=== PATIENT | male | born 1950 | race African-American/Black ===

== ENCOUNTER 2023-07-28 12:58 | Inpatient (IN) | payer MEDICARE, MEDICAID, SELFPAY ==
[2023-07-28] VITALS (8 sets, daily range): BP systolic 108–165; BP diastolic 52–75; PULSE 76–100; RESP 16–20; TEMP 36.4–37; O2SAT 97–100; BMI 30.4
--- NOTE | ~2023-07-28 | XR_ITS ---
EXAMINATION: XR chest 2V DATE: 07/28/2023 13:36 INDICATION: Cough. Hemoptysis. Sore throat. TECHNIQUE: Frontal and lateral views of the chest were obtained. COMPARISON: None. FINDINGS: There is mild atelectasis in the lower lung zones. No pleural effusion or pneumothorax. The heart size is normal. There are old healed right rib fractures. There is mild chronic anterior wedgi ng of multiple vertebral bodies. IMPRESSION: 1. Mild atelectasis in the lower lung zones. Reviewed, dictated and finalized at location E.
--- NOTE | ~2023-07-28 | CT_ITS ---
EXAMINATION: CTA chest PE protocol DATE: 07/28/2023 15:45 CDT INDICATION: Pulmonary embolism. TECHNIQUE: Computed tomographic angiography (CTA) of the chest was performed with 100 mL Omnipaque-35 0 intravenous contrast. The dose-length product was 989.66 mGy-cm. Maximum intensity projection 3D-re constructions of the aorta and other arteries were constructed by the technologist on a separate work station. COMPARISON: None. FINDINGS: There is lingular and left lower lobe atelectasis. No thoracic lymphadenopathy. No evidence for aortic aneurysm or dissection. Small hiatal hernia with thickening of the esophagus. Gallbladder is contracted. Study limited due to contrast bolus timing and motion artifact. No large central pulm onary embolism. Elevated left diaphragm. There are multiple small bilateral pulmonary nodules measuri ng 3 mm or less, likely benign. There is left lower lobe atelectasis. No pneumothorax. No endobronchi al lesions. Moderate thoracic spondylosis. Multiple mild wedge compression deformities of the thoraci c spine which appear chronic. IMPRESSION: 1. No large central pulmonary embolism. Evaluation of the peripheral pulmonary arteries limited. 2: Elevated left diaphragm with lingular and left lower lobe atelectasis. 3: Small hiatal hernia with thickening of the distal esophagus, suspicious for esophagitis. 4: Small bilateral pulmonary nodules measuring 3 mm or less, likely benign. Consider follow-up low d ose CT in 12 months. Reviewed, dictated and finalized at location A. IMPRESSION: 1. No large central pulmonary embolism. Evaluation of the peripheral pulmonary arteries limited. 2: Elevated left diaphragm with lingular and left lower lobe atelectasis. 3: Small hiatal hernia with thickening of the distal esophagus, suspicious for esophagitis. 4: Small bilateral pulmonary nodules measuring 3 mm or less, likely benign. Co nsider follow-up low dose CT in 12 months.
[2023-07-28 14:23] LABS: Influenza A QL RT-PCR Negative (Negative); Influenza B QL RT-PCR Negative (Negative); RSV RNA, RT-PCR Negative (Negative); SARS-CoV-2 RNA PCR Negative (Negative)
--- NOTE | 2023-07-28 14:34 | ED.URI ---
HPI - URI/Sore Throat General Chief Complaint: Upper Respiratory Infection Stated Complaint: coughing up blood clots Time Seen by Provider: 07/28/23 13:34 History of Present Illness HPI Narrative: Patient is a pleasant 73-year-old male here today with hemoptysis. He states that over the last 1 week he believes he has coughed up blood 4-5 times. He has a difficult time describing the blood however he does believe there is some sputum with blood in it and not blood clot. He notes some associated dental pain as well as a sore throat. He denies any recent nose bleeds. He does believe he has had a mild cough, as well as some shortness of breath. He denies any chest pain. He is unsure if he is on any blood thinners. Her [facility] paperwork is a history of schizophrenia, generalized anxiety, mood disorder, chronic pain, hypertension, neuro cognitive disorder. No blood thinners on medication list. Related Data Home Medications Medication Instructions Recorded Confirmed amlodipine 10 mg tablet 10 mg PO DAILY 07/28/23 07/28/23 escitalopram oxalate 20 mg tablet 20 mg PO DAILY 07/28/23 07/28/23 gabapentin 300 mg capsule 300 mg PO TID 07/28/23 07/28/23 lisinopril 40 mg tablet 40 mg PO DAILY 07/28/23 07/28/23 naproxen 500 mg tablet 500 mg PO Q6H 07/28/23 07/28/23 quetiapine 25 mg tablet 25 mg PO BID 07/28/23 07/28/23 Allergies Allergy/AdvReac Type Severity Reaction Status Date / Time ketorolac Allergy Unknown Verified 07/28/23 15:08 Review of Systems Review of Systems: All systems reviewed & are unremarkable except as noted in HPI and below [facility] Past Medical History Medical History (Updated 07/28/23 @ 18:06 by Jana Ziegler PA-C) Chronic pain syndrome Generalized anxiety disorder Hypertension Schizophrenia Surgical History Surgical History (Updated 07/28/23 @ 18:04 by Jana Ziegler PA-C) No history of previous surgery Family History Family History (Updated 07/28/23 @ 18:05 by Jana Ziegler PA-C) Other Family history unknown Social History Social History (Updated 07/28/23 @ 18:05 by Jana Ziegler PA-C) Social History: Surrogate medical decision maker: Kriss Wise, daughter. Code status: Full code. Smoking status: Never smoker Alcohol intake: never Substance use: never Substance use type: does not use Do You Feel Safe in your Home?: Yes Lack of Transportation: No Lack of Food: Never True Current Housing: I Have Housing Concerned About Future Housing: No Difficulty Paying Gas/Electric Bills: No Difficulty Paying for Meds: No Currently Unemployed: No Education: Decline to Answer Difficulty w/ Childcare or Family Care: No Spiritual care concerns: No Exam Narrative: GENERAL: Well-appearing, well-nourished, and in no acute distress. HEAD: Normocephalic, atraumatic. EYES: PERRLA and EOMI. ENT: Nares clear. Mucous membranes moist. Difficult to visualize posterior pharynx, no obvious active bleeding or swelling or erythema. Poor dentition throughout but no appreciated dental fractures. No blood in nares. NECK: Supple. CHEST: Mild coarse breath sounds on the right side. No respiratory distress. HEART: Regular rate and rhythm. Normal peripheral pulses. ABDOMEN: Soft, nontender, nondistended. EXTREMITIES: Normal range of motion. No edema. No calf tenderness. SKIN: Warm, dry, no rash. NEURO: No focal deficits. Alert and oriented x2. PSYCH: Normal mood and affect. Course Course Emergency Course: Chart review performed. Patient from [facility] for coughing up blood intermittently x1 week, 2 episodes. Triage vitals normal. No prior visits in our system. COVID, influenza, RSV negative. CXR shows mild atelectasis in lower lung zones. Patient seen evaluated, nontoxic appearing. He is able to provide a decent history, describes some hemoptysis over the last week. He is not on any blood thinners. It seems as though it h
--- NOTE | 2023-07-28 14:35 | ECG_ITS ---
SEE SCANNED COPY FOR CONFIRMED REPORT MTDD
[2023-07-28] MEDS: ACETAMINOPHEN 500 MG TABLET PO (15:12)
[2023-07-28 15:15] LABS: Basophils Absolute Auto 0.1 K/mm3 (0.0-0.1); Basophils Percent Auto 0.6 % (0.2-1.2); Eosinophils Absolute Auto 0.3 K/mm3 (0-0.3); Eosinophils Percent Auto 3.4 % (0-4.4); Hematocrit 26.2 % (42.0-52.0); Hemoglobin 7.2 g/dL (14.0-18.0); Immature Granulocyte Absolute 0.02 K/mm3 (0.00-0.031); Immature Granulocyte Percent A 0.2 % (0-0.5); Lymphocytes Percent Auto 34.5 % (18.3-44.2); Mean Corpuscular HGB Conc 27.5 g/dl (32-36); Mean Corpuscular Volume 94.6 fl (80-100); Mean Platelet Volume 9.8 fl (7.4-10.4); Monocytes Absolute Auto 0.8 K/mm3 (0.1-0.6); Monocytes Percent Auto 8.3 % (2.6-8.5); Neutrophils Absolute Auto 5.2 K/mm3 (1.3-6.7); Nucleated Red Blood Cells Perc 0.5 % (0.0-0.2); Platelet Count Result 442 k/mm3 (150-375); Red Blood Count 2.77 M/mm3 (4.6-6.20); Red Cell Distribution Width 19.3 % (11.5-14.5); White Blood Count 9.9 K/mm3 (4.5-10.0)
[2023-07-28 15:25] LABS: Alanine Aminotransferase 16 U/L (6-50); Albumin Level 3.6 g/dL (3.5-5.1); Alkaline Phosphatase 120 U/L (38-126); Anion Gap 3 mmol/L (4-12); Aspartate Amino Transferase 19 U/L (17-59); Bilirubin,Total 0.3 mg/dL (0.2-1.3); Blood Urea Nitrogen 19 mg/dL (9-20); Carbon Dioxide 27 mmol/L (22-30); Chloride 111 mmol/L (98-107); Estimated CRCL calculation 71 ml/min; Estimated Glomerular Filt Rate > 60; Glucose 132 mg/dL (65-110); Sodium 141 mmol/L (137-145)
[2023-07-28 15:30] LABS: Prothrombin Time 14.1 Seconds (11.1-14.7)
[2023-07-28 15:31] LABS: Partial Thromboplastin Time 29.1 Seconds (22.3-36.8)
[2023-07-28 15:37] LABS: NT Pro B Type Natriuretic Pept < 20 pg/mL (19.9-100); Troponin I < 0.012 ng/mL (0.000-0.034)
[2023-07-28 15:57] LABS: Anisocytosis 1+; Platelet Estimate Increased (Adequate); Schistocytes None Seen
[2023-07-28] MEDS: PANTOPRAZOLE SODIUM IV 40 MG VIAL IV PUSH (17:42)
--- NOTE | 2023-07-28 18:02 | PM.IMHP ---
H&P: HPI History of Present Illness Date/Time: 07/28/23 17:30 Chief Complaint: ?Coughing up blood.? Narrative: This is a pleasant 73-year-old male with history of hypertension, anxiety, neuro cognitive disorder, chronic pain, and schizophrenia who presented to the emergency department via EMS from [facility] for evaluation of ?coughing up blood.? The patient is not the greatest historian unfortunately he has never been seen at this facility before. He tells me that he has coughed up blood 4 to 5 times in the past 1 week. With further questioning he reports coughing up some mucus with a small amount of bright red blood in it. He does mention dental pain but does not think he has been bleeding from the mouth and he denies nose bleed as well. He does not believe that the blood is coming from the stomach. Otherwise he is feeling okay and he denies fever, chills, sweats, sinus congestion, sore throat, chest pain, pleuritic pain, shortness of breath, epigastric pain, abdominal pain, bloating, indigestion, diarrhea, melena, hematochezia, and dysuria. In the ED: He was afebrile on arrival with stable vital signs. Labs were significant for WBC count of 9.9, hemoglobin 7.2, MCV 94.6, platelet 442, INR 1.0, BUN 19, creatinine 1.00. He tested negative for influenza, RSV, and COVID. Chest CTA showed no evidence of large central pulmonary embolism, left diaphragm elevation, small hiatal hernia with thickening of the distal esophagus, and small bilateral pulmonary nodules. Stool was Hemoccult negative per ED physician. He is being admitted in this setting for further workup. Review of Systems Review of Systems: 12 systems were reviewed and are negative except for as per HPI. [facility] Past Medical History Medical History (Updated 07/28/23 @ 21:31 by Jana Ziegler PA-C) Chronic pain syndrome Generalized anxiety disorder Hypertension Schizophrenia Surgical History Surgical History (Updated 07/28/23 @ 18:04 by Jana Ziegler PA-C) No history of previous surgery Family History Family History (Updated 07/28/23 @ 18:05 by Jana Ziegler PA-C) Other Family history unknown Social History Social History (Updated 07/28/23 @ 18:05 by Jana Ziegler PA-C) Social History: Surrogate medical decision maker: Kriss Wise, daughter. Code status: Full code. Smoking status: Never smoker Alcohol intake: never Substance use: never Substance use type: does not use Do You Feel Safe in your Home?: Yes Lack of Transportation: No Lack of Food: Never True Current Housing: I Have Housing Concerned About Future Housing: No Difficulty Paying Gas/Electric Bills: No Difficulty Paying for Meds: No Currently Unemployed: No Education: Decline to Answer Difficulty w/ Childcare or Family Care: No Spiritual care concerns: No Meds Home Medications and Allergies Home Medications Medication Instructions Recorded Confirmed Type amlodipine 10 mg tablet 10 mg PO DAILY 07/28/23 07/28/23 History escitalopram oxalate 20 mg tablet 20 mg PO DAILY 07/28/23 07/28/23 History gabapentin 300 mg capsule 300 mg PO TID 07/28/23 07/28/23 History lisinopril 40 mg tablet 40 mg PO DAILY 07/28/23 07/28/23 History naproxen 500 mg tablet 500 mg PO Q6H 07/28/23 07/28/23 History quetiapine 25 mg tablet 25 mg PO BID 07/28/23 07/28/23 History Allergies Allergy/AdvReac Type Severity Reaction Status Date / Time ketorolac Allergy Unknown Verified 07/28/23 15:08 Vital Signs Vital Signs - 24 hr 07/28/23 12:56 07/28/23 13:30 07/28/23 15:30 Temperature 97.6 F Pulse Rate 90 92 85 Respiratory Rate 16 16 16 Blood Pressure 129/67 134/75 108/55 L Pulse Oximetry 99 98 98 07/28/23 18:01 Temperature Pulse Rate 76 Respiratory Rate 16 Blood Pressure 118/66 Pulse Oximetry 97 Exam Narrative: General: Well-developed male supine in bed in no distress. Weight: 102 kg. BMI: 30.5. HEENT: Normo
--- NOTE | 2023-07-28 18:46 | PC.NURSE ---
This patient, Pancho Puga, was admitted to [facility] Surg Room 327-01. Patient/family oriented to hospital policies and general routines including ID bracelet, bed and alarms, visiting hours, pain management, procedures, bathroom and other care routines, personal items, smoking policy, room service/diet, and visiting hours. Information on how to activate the Rapid Response Team has been discussed. Patient/Family are encouraged to report perceived risks to care and to ask questions if they do not understand what they are told or what they should do.
[2023-07-28] MEDS: ACETAMINOPHEN 325 MG TABLET 650 MG PO (21:19)
[2023-07-28 21:50] LABS: Hematocrit 26.7 % (42.0-52.0); Hemoglobin 7.6 g/dL (14.0-18.0)
[2023-07-28 22:06] LABS: Iron 20 ug/dL (49-181)
[2023-07-28 22:16] LABS: Percent Iron Saturation 6 % (20-50)
[2023-07-28] MEDS: QUEtiapine FUMARATE 25 MG TABLET PO (22:19)
[2023-07-28 22:42] LABS: Ferritin 7.16 ng/mL (11.1-264)
[2023-07-28 23:07] LABS: Folic Acid 8.2 ng/mL (2.76->20); Vitamin B12 > 1000.0 pg/mL (239-931)
[2023-07-29] VITALS (8 sets, daily range): BP systolic 118–157; BP diastolic 67–90; PULSE 76–93; RESP 12–18; TEMP 35.4–36.9; O2SAT 93–100
[2023-07-29] MEDS: MAGNES & ALUM HYD/SIMETH/DIPHENHYD/LIDOCAINE 119 ML MOUTHWASH BY MOUTH ×6 (00:45→20:36)
[2023-07-29 06:03] LABS: Hematocrit 27.7 % (42.0-52.0); Hemoglobin 7.7 g/dL (14.0-18.0); Mean Corpuscular HGB Conc 27.8 g/dl (32-36); Mean Corpuscular Hemoglobin 26.3 pg (26-34); Mean Corpuscular Volume 94.5 fl (80-100); Mean Platelet Volume 9.4 fl (7.4-10.4); Platelet Count Result 443 k/mm3 (150-375); Red Blood Count 2.93 M/mm3 (4.6-6.20); Red Cell Distribution Width 19.1 % (11.5-14.5); White Blood Count 7.5 K/mm3 (4.5-10.0)
[2023-07-29 06:17] LABS: Anion Gap 4 mmol/L (4-12); Blood Urea Nitrogen 14 mg/dL (9-20); Calcium 8.8 mg/dL (8.4-10.2); Carbon Dioxide 26 mmol/L (22-30); Chloride 110 mmol/L (98-107); Estimated CRCL calculation 69 ml/min; Estimated Glomerular Filt Rate > 60; Glucose 112 mg/dL (65-110); Magnesium 2.1 mg/dL (1.6-2.3); Sodium 140 mmol/L (137-145)
[2023-07-29] MEDS: ESCITALOPRAM OXALATE 10 MG TABLET 20 MG PO (08:42)
[2023-07-29] MEDS: GABAPENTIN 300 MG CAPSULE PO ×3 (08:43→17:39)
[2023-07-29] MEDS: QUEtiapine FUMARATE 25 MG TABLET PO ×2 (08:43→20:36)
[2023-07-29] MEDS: amLODIPine BESYLATE 5 MG TABLET 10 MG PO (08:43)
[2023-07-29] MEDS: lisinopriL 20 MG TABLET 40 MG PO (08:43)
[2023-07-29] MEDS: PANTOPRAZOLE SODIUM IV 40 MG VIAL IV PUSH ×2 (08:44→20:36)
[2023-07-29] MEDS: IRON SUCROSE COMPLEX 300 MG in SODIUM CHLORIDE 0.9% IV 250 ML 177 MG IVPB (09:00)
--- NOTE | 2023-07-29 09:20 | WPDGICN ---
Assessment and Plan Assessment and plan (1) ROWDY (iron deficiency anemia): Qualifiers: Iron deficiency anemia type: other iron deficiency Qualified Code(s): D50.8 - Other iron deficiency anemias Code(s): D50.9 - Iron deficiency anemia, unspecified Status: Acute (2) Abnormal digestive system diagnostic imaging: Code(s): R93.3 - Abnormal findings on diagnostic imaging of other parts of digestive tract Status: Acute (3) Esophagitis: Code(s): K20.90 - Esophagitis, unspecified without bleeding Status: Acute (4) Hematemesis: Qualifiers: Nausea presence: without nausea Qualified Code(s): K92.0 - Hematemesis Code(s): K92.0 - Hematemesis Status: Acute Plan 1) ROWDY/abnormal imaging digestive-esophagitis/ hematemesis?: EGD and colonoscopy Hx unknown but patient denies prior Hx. Labs showing Hgb 8, Hct, 28, MCV 95, platelets 443, INR 1.0. Iron 20, TIBC 345, iron saturation 6% and ferritin 7. FOB negative. B12 and folate normal. On no anticoagulants or aspirin [employer]. CTA chest showed small hiatal hernia with thickening of the distal esophagus, suspicious for esophagitis. Normal colored formed BM yesterday evening. No signs of active GI bleeding. IV iron ordered Continue PPI Care with NSAID's, aspirin and anticoags Keep NPO EGD today Primary care team to continue monitoring H/H and transfuse as needed to keep Hgb > 7 Further recs to follow endoscopy Thank you for allowing me to share in the care of this patient. GI Consult Note Consult date/time: 07/29/23 09:20 Reason for consult: Anemia and esophagitis noted on imaging HPI: Pancho Puga is a 73 year old male with Hx of hypertension, anxiety, neuro cognitive disorder, chronic pain, and schizophrenia who presented to the emergency department via EMS from [facility] for evaluation of ?coughing up blood.?? GI consulted for anemia and esophagitis noted on imaging. Patient is a poor historian so the reliability of his subjective information cannot be verified. Patient did state that he has constipation from time to time and has had a terrible appetite . Last BM was yesterday evening and was large, brown and formed. he denies any previous EGD or colonoscopy history. Family medical history unknown. He was on no GI medications prior to admission. The patient was unable to say if he was coughing or vomiting blood prior to admission. Denies abdominal pain, nausea, vomiting, bloating, odynophagia, dysphagia the, reflux, regurgitation, early satiety, unexplained weight loss, diarrhea, hematochezia, or melena. ENDOSCOPY HISTORY: Patient denies prior history of EGD or colonoscopy, but this could not be verified IMAGING: CTA chest w/contrast 07/28/2023 FINDINGS: There is lingular and left lower lobe atelectasis. No thoracic lymphadenopathy. No evidence for aortic aneurysm or dissection. Small hiatal hernia with thickening of the esophagus. Gallbladder is contracted. Study limited due to contrast bolus timing and motion artifact. No large central pulmonary embolism. Elevated left diaphragm. There are multiple small bilateral pulmonary nodules measuring 3 mm or less, likely benign. There is left lower lobe atelectasis. No pneumothorax. No endobronchial lesions. Moderate thoracic spondylosis. Multiple mild wedge compression deformities of the thoracic spine which appear chronic. IMPRESSION: 1. No large central pulmonary embolism. Evaluation of the peripheral pulmonary arteries limited. 2: Elevated left diaphragm with lingular and left lower lobe atelectasis. 3:? Small hiatal hernia with thickening of the distal esophagus, suspicious for esophagitis. 4:? Small bilateral pulmonary nodules measuring 3 mm or less, likely benign. Consider follow-up low dose CT in 12 months. Review of Systems Constitutional: Constitutional: Reports l
--- NOTE | 2023-07-29 18:00 | PM.IMPN ---
Progress Note: A&P Assessment and Plan (1) Normocytic anemia: Code(s): D64.9 - Anemia, unspecified Status: Acute (2) Coughing up blood: Code(s): R04.2 - Hemoptysis Status: Acute (3) Esophagitis: Code(s): K20.90 - Esophagitis, unspecified without bleeding Status: Acute (4) Pulmonary nodules: Code(s): R91.8 - Other nonspecific abnormal finding of lung field Status: Acute (5) Hypertension: Code(s): I10 - Essential (primary) hypertension Status: Acute (6) Schizophrenia: Code(s): F20.9 - Schizophrenia, unspecified Status: Acute (7) Generalized anxiety disorder: Code(s): F41.1 - Generalized anxiety disorder Status: Acute Plan 07/28/2023 ... Plan on admission: The patient presented to the emergency department for evaluation of ?coughing up blood? as detailed in HPI. Labs, imaging, EKG, and all reports were personally reviewed. Chest CTA showed no evidence of central pulmonary embolus although evaluation was limited in the peripheral arteries due to motion artifact. History is not consistent with bronchitis or pneumonia. Incidentally there was thickening of the distal esophagus suspicious for esophagitis and it is plausible that the blood coughed up came from the esophagus. Naproxen has been placed on hold. Start PPI. Stool was Hemoccult negative in the ED however he does have pretty significant anemia thus will ask GI to see him in consultation. He will NPO after midnight for possible EGD. Small bilateral pulmonary nodules were noted on CT scan and radiologist suggest repeating low-dose CT in 12 months for follow-up if appropriate. Blood pressures were reviewed and they are stable. His home medications will be reviewed and resumed as appropriate. Findings and treatment plan were discussed with the patient. Questions were solicited and answered to satisfaction. The patient's medical management will be taken over by the hospitalist team in a.m. 07/29/2023: Admit patient to medical unit under full inpatient status Continue with IV Protonix GI consult for evaluation and further treatment recommendations GI plans to do EGD in am Keep patient nothing by mouth except meds Monitor H&H in a.m. more frequently as needed Hold off on Aspirin/NSAIDs/anticoagulation Patient has labs consistent with iron deficiency anemia Patient started on IV Venofer 300 mg daily for 3 days Patient would need to be discharged on ferrous sulfate 324 mg orally bid daily DC planning back to [facility] once patient is stable and cleared by GI for discharge ? Patient seen and examined at bedside during my morning rounds ? Collaborated with patient's nurse at the bedside in detail and addressed all concerns ? Labs, electrolytes, radiology, investigations and test results reviewed ? Consult/Nursing/Ancilliary notes on the chart reviewed and appreciated ? Spoke with patient/family at the bedside and answered all the questions that they had Repeat labs in a.m. Electrolyte replacement as per protocol. Patient will be monitored very closely on the floor. Further recommendations as per the hospital course. Time Spent With Patient Time with patient: 15 - 25 minutes Subjective Date/time seen: 07/29/23 18:00 Interval history: Patient lying in bed during my morning rounds. No major complaints. Going for EGD in a.m. Review of Systems Review of Systems: 14 systems were reviewed with pertinent positives and negatives per HPI. Except as documented in the HPI/progress notes, all other systems were reviewed and are negative. All systems reviewed & are unremarkable except as noted in HPI and below Exam Narrative: General: Well-developed male supine in bed in no distress HEENT: Normocephalic, atraumatic. PERRL, EOMI. Sclera anicteric. Moist mucous membranes. Nares patent bilaterally. Several missing teeth. Oropharynx is crowded. Neck: Supple. Respiratory: Lungs
[2023-07-30] VITALS (14 sets, daily range): BP systolic 92–163; BP diastolic 46–90; PULSE 74–106; RESP 14–27; TEMP 36.4–37.1; O2SAT 94–100
[2023-07-30] MEDS: MAGNES & ALUM HYD/SIMETH/DIPHENHYD/LIDOCAINE 119 ML MOUTHWASH BY MOUTH ×5 (05:41→21:01)
[2023-07-30 06:15] LABS: Basophils Percent Auto 0.5 % (0.2-1.2); Eosinophils Absolute Auto 0.2 K/mm3 (0-0.3); Hemoglobin 8.1 g/dL (14.0-18.0); Immature Granulocyte Absolute 0.03 K/mm3 (0.00-0.031); Immature Granulocyte Percent A 0.4 % (0-0.5); Lymphocytes Absolute Auto 1.75 K/mm3 (0.9-3.2); Lymphocytes Percent Auto 22.6 % (18.3-44.2); Mean Corpuscular HGB Conc 27.9 g/dl (32-36); Mean Corpuscular Hemoglobin 26.1 pg (26-34); Mean Corpuscular Volume 93.5 fl (80-100); Mean Platelet Volume 9.8 fl (7.4-10.4); Monocytes Absolute Auto 0.6 K/mm3 (0.1-0.6); Monocytes Percent Auto 8.1 % (2.6-8.5); Neutrophils Absolute Auto 5.1 K/mm3 (1.3-6.7); Neutrophils Percent Auto 65.4 % (45.5-73.1); Nucleated Red Blood Cells Perc 0.5 % (0.0-0.2); Platelet Count Result 481 k/mm3 (150-375); Red Cell Distribution Width 19.7 % (11.5-14.5); White Blood Count 7.8 K/mm3 (4.5-10.0)
[2023-07-30 06:26] LABS: Anion Gap 6 mmol/L (4-12); Blood Urea Nitrogen 17 mg/dL (9-20); Carbon Dioxide 25 mmol/L (22-30); Chloride 109 mmol/L (98-107); Estimated CRCL calculation 57 ml/min; Estimated Glomerular Filt Rate > 60; Glucose 111 mg/dL (65-110); Phosphorus 3.5 mg/dL (2.5-4.5); Potassium 3.8 mmol/L (3.4-5.0); Sodium 140 mmol/L (137-145)
[2023-07-30 07:00] LABS: Hypochromasia 1+; Platelet Estimate Adequate (Adequate); Polychromasia 1+
[2023-07-30 07:01] LABS: Anisocytosis 1+; Schistocytes None Seen
[2023-07-30] MEDS: PANTOPRAZOLE SODIUM IV 40 MG VIAL IV PUSH ×2 (08:51→21:01)
[2023-07-30] MEDS: IRON SUCROSE COMPLEX 300 MG in SODIUM CHLORIDE 0.9% IV 250 ML 177 MG IVPB (08:51)
[2023-07-30] MEDS: QUEtiapine FUMARATE 25 MG TABLET PO ×2 (08:53→21:01)
[2023-07-30] MEDS: ESCITALOPRAM OXALATE 10 MG TABLET 20 MG PO (08:53)
[2023-07-30] MEDS: amLODIPine BESYLATE 5 MG TABLET 10 MG PO (08:53)
[2023-07-30] MEDS: GABAPENTIN 300 MG CAPSULE PO ×3 (08:53→16:57)
[2023-07-30] MEDS: lisinopriL 20 MG TABLET 40 MG PO (08:53)
[2023-07-30] MEDS: ACETAMINOPHEN 325 MG TABLET 650 MG PO (09:04)
--- NOTE | 2023-07-30 09:48 | PC.NURSE ---
Attempted to contact daughter Kriss Wise by phone. The number [phone] does not work. Contacted the care home and they have the same number.
[2023-07-30] MEDS: LACTATED RINGERS 1,000 ML 150 ML IV CONT (10:43)
[2023-07-30] MEDS: BENZOCAINE (*SP) 60 ML SPRAY CAN (HURRICAINE) 1 SPRAY MUCOUS MEM (11:08)
[2023-07-30] MEDS: SODIUM CHLORIDE 0.9% IV 500 ML 999 ML IV CONT (12:36)
[2023-07-30] MEDS: SUCRALFATE SUSP 100 MG/ML 10 ML UDC 1000 MG PO ×3 (12:37→21:02)
--- NOTE | 2023-07-30 17:00 | PC.NURSE ---
patient took telemetry off and refusing to put back on.
--- NOTE | 2023-07-30 18:29 | PM.IMPN ---
Progress Note: A&P Assessment and Plan (1) Normocytic anemia: Code(s): D64.9 - Anemia, unspecified Status: Acute (2) Coughing up blood: Code(s): R04.2 - Hemoptysis Status: Acute (3) Esophagitis: Code(s): K20.90 - Esophagitis, unspecified without bleeding Status: Acute (4) Pulmonary nodules: Code(s): R91.8 - Other nonspecific abnormal finding of lung field Status: Acute (5) Hypertension: Code(s): I10 - Essential (primary) hypertension Status: Acute (6) Schizophrenia: Code(s): F20.9 - Schizophrenia, unspecified Status: Acute (7) Generalized anxiety disorder: Code(s): F41.1 - Generalized anxiety disorder Status: Acute Plan 07/28/2023 ... Plan on admission: The patient presented to the emergency department for evaluation of ?coughing up blood? as detailed in HPI. Labs, imaging, EKG, and all reports were personally reviewed. Chest CTA showed no evidence of central pulmonary embolus although evaluation was limited in the peripheral arteries due to motion artifact. History is not consistent with bronchitis or pneumonia. Incidentally there was thickening of the distal esophagus suspicious for esophagitis and it is plausible that the blood coughed up came from the esophagus. Naproxen has been placed on hold. Start PPI. Stool was Hemoccult negative in the ED however he does have pretty significant anemia thus will ask GI to see him in consultation. He will NPO after midnight for possible EGD. Small bilateral pulmonary nodules were noted on CT scan and radiologist suggest repeating low-dose CT in 12 months for follow-up if appropriate. Blood pressures were reviewed and they are stable. His home medications will be reviewed and resumed as appropriate. Findings and treatment plan were discussed with the patient. Questions were solicited and answered to satisfaction. The patient's medical management will be taken over by the hospitalist team in a.m. 07/29/2023: Admit patient to medical unit under full inpatient status Continue with IV Protonix, switched to oral protonix GI consult for evaluation and further treatment recommendations Patient underwent EGD today which showed reflux esophagitis, hiatal hernia and gastritis Oral Protonix ordered daily by GI Carafate 1 g q.i.d. with meals ordered for 2 weeks ordered by GI DC NPO, started patient on regular diet Hold off on Aspirin/NSAIDs/anticoagulation Patient has labs consistent with iron deficiency anemia Patient received on IV Venofer 300 mg daily for 3 days Patient would be discharged on ferrous sulfate 324 mg orally bid daily Patient's BP after EGD was 96/42 500 cc IV normal saline bolus ordered Cut down on patient's amlodipine and lisinopril by 50% and spaced out in a.m. and p.m. DC planning back to [facility] in am once patient is stable and cleared by GI for discharge ? Patient seen and examined at bedside during my morning rounds ? Collaborated with patient's nurse at the bedside in detail and addressed all concerns ? Labs, electrolytes, radiology, investigations and test results reviewed ? Consult/Nursing/Ancilliary notes on the chart reviewed and appreciated ? Spoke with patient/family at the bedside and answered all the questions that they had Repeat labs in a.m. Electrolyte replacement as per protocol. Patient will be monitored very closely on the floor. Further recommendations as per the hospital course. Time Spent With Patient Time with patient: 15 - 25 minutes Subjective Date/time seen: 07/30/23 18:29 Interval history: Patient lying in bed during my morning rounds. No major complaints. Patient underwent EGD today. Postop had low blood pressures requiring 500 cc normal saline bolus. Review of Systems Review of Systems: 14 systems were reviewed with pertinent positives and negatives per HPI. Except as documented in the HPI/progress notes, all other systems were reviewed
[2023-07-31] MEDS: MAGNES & ALUM HYD/SIMETH/DIPHENHYD/LIDOCAINE 119 ML MOUTHWASH BY MOUTH ×4 (05:39→17:01)
[2023-07-31] MEDS: SUCRALFATE SUSP 100 MG/ML 10 ML UDC 1000 MG PO ×3 (05:39→17:01)
[2023-07-31 05:44] VITALS: BP 124/65; PULSE 90; RESP 20; TEMP 36.6; O2SAT 95
[2023-07-31 06:30] LABS: Basophils Percent Auto 0.3 % (0.2-1.2); Eosinophils Absolute Auto 0.2 K/mm3 (0-0.3); Hematocrit 27.1 % (42.0-52.0); Hemoglobin 7.5 g/dL (14.0-18.0); Immature Granulocyte Absolute 0.06 K/mm3 (0.00-0.031); Immature Granulocyte Percent A 0.8 % (0-0.5); Lymphocytes Absolute Auto 1.93 K/mm3 (0.9-3.2); Lymphocytes Percent Auto 24.3 % (18.3-44.2); Mean Corpuscular HGB Conc 27.7 g/dl (32-36); Mean Corpuscular Hemoglobin 26.3 pg (26-34); Mean Corpuscular Volume 95.1 fl (80-100); Mean Platelet Volume 10.2 fl (7.4-10.4); Monocytes Absolute Auto 0.8 K/mm3 (0.1-0.6); Monocytes Percent Auto 9.7 % (2.6-8.5); Neutrophils Percent Auto 62.9 % (45.5-73.1); Nucleated Red Blood Cells Perc 1.1 % (0.0-0.2); Platelet Count Result 485 k/mm3 (150-375); Red Blood Count 2.85 M/mm3 (4.6-6.20); White Blood Count 7.9 K/mm3 (4.5-10.0)
[2023-07-31 06:39] LABS: Anion Gap 3 mmol/L (4-12); Blood Urea Nitrogen 19 mg/dL (9-20); Calcium 8.9 mg/dL (8.4-10.2); Carbon Dioxide 25 mmol/L (22-30); Chloride 111 mmol/L (98-107); Estimated CRCL calculation 60 ml/min; Estimated Glomerular Filt Rate > 60; Glucose 110 mg/dL (65-110); Potassium 3.8 mmol/L (3.4-5.0); Sodium 139 mmol/L (137-145)
[2023-07-31 07:26] LABS: Anisocytosis 2+; Hypochromasia 2+; Macrocytosis 1+ (NORMAL); Platelet Estimate Increased (Adequate); Schistocytes None Seen
[2023-07-31] MEDS: GABAPENTIN 300 MG CAPSULE PO ×3 (09:07→17:01)
[2023-07-31] MEDS: QUEtiapine FUMARATE 25 MG TABLET PO (09:07)
[2023-07-31] MEDS: ESCITALOPRAM OXALATE 10 MG TABLET 20 MG PO (09:07)
[2023-07-31] MEDS: lisinopriL 20 MG TABLET PO (09:07)
[2023-07-31] MEDS: IRON SUCROSE COMPLEX 300 MG in SODIUM CHLORIDE 0.9% IV 250 ML 177 MG IVPB (09:08)
[2023-07-31] MEDS: ACETAMINOPHEN 325 MG TABLET 650 MG PO (09:11)
--- NOTE | 2023-07-31 09:11 | WPDANESPN ---
Anes - Prog Note Post-Op Date/Time: 07/31/23 09:11 Cardiovascular status: normal Respiratory status: normal Airway patency: baseline Mental status: baseline Post-Op hydration status: normal Vital Signs: Last Vital Signs Temp 36.6 C 07/31/23 05:44 Pulse 90 07/31/23 05:44 Resp 20 07/31/23 05:44 BP 124/65 07/31/23 05:44 Pulse Ox 95 07/31/23 05:44 O2 Del Method Room Air 07/30/23 20:00 Pain Score (VAS): Patient asleep, no nonverbal signs of pain present at this time. I/O: Intake & Output 07/30/23 07/31/23 07/31/23 23:59 07:59 15:59 Intake Total 480 350 0 Output Total 500 500 Balance -20 -150 0 Laboratory Tests 07/31/23 05:37 07/31/23 05:37 07/31/23 05:37 WBC 7.9 RBC 2.85 L Hgb 7.5 L Hct 27.1 L MCV 95.1 MCH 26.3 MCHC 27.7 L RDW 20.0 H Plt Count 485 H MPV 10.2 Immature Gran % (Auto) 0.8 H Neut % (Auto) 62.9 Lymph % (Auto) 24.3 Freestone % (Auto) 9.7 H Eos % (Auto) 2.0 Baso % (Auto) 0.3 Lymph # (Auto) 1.93 [place] # (Auto) 0.8 H Eos # (Auto) 0.2 Baso # (Auto) 0.0 Abs Immat Gran (auto) 0.06 H Absolute Neuts (auto) 5.0 Absolute Nucleated RBC 0.090 H Nucleated RBC % 1.1 H Platelet Estimate Increased Hypochromasia 2+ Anisocytosis 2+ Macrocytosis 1+ Schistocytes None seen Sodium 139 Potassium 3.8 Chloride 111 H Carbon Dioxide 25 Anion Gap 3 L BUN 19 Creatinine 1.20 Estim Creat Clear Calc 60 Estimated GFR > 60 Glucose 110 Calcium 8.9 Post-procedural complaints: none Patient Feedback: Patient satisfied with anesthetic care.
[2023-07-31] MEDS: PANTOPRAZOLE SODIUM IV 40 MG VIAL IV PUSH (09:16)
--- NOTE | 2023-07-31 13:26 | PM.DS ---
DS: Admitting Diagnosis Discharge Date 07/31/2023: Admitting Diagnosis Assessment and plan (1) Normocytic anemia: ?Code(s): D64.9 - Anemia, unspecified ?Status:?Acute (2) Coughing up blood: ?Code(s): R04.2 - Hemoptysis ?Status:?Acute (3) Esophagitis: ?Code(s): K20.90 - Esophagitis, unspecified without bleeding ?Status:?Acute (4) Pulmonary nodules: ?Code(s): R91.8 - Other nonspecific abnormal finding of lung field ?Status:?Acute (5) Hypertension: ?Code(s): I10 - Essential (primary) hypertension ?Status:?Acute (6) Schizophrenia: ?Code(s): F20.9 - Schizophrenia, unspecified ?Status:?Acute (7) Generalized anxiety disorder: ?Code(s): F41.1 - Generalized anxiety disorder ?Status:?Acute DS: Discharge Diagnosis Discharge Diagnosis (1) Hematemesis: Qualifiers: Nausea presence: without nausea Qualified Code(s): K92.0 - Hematemesis Code(s): K92.0 - Hematemesis Status: Acute (2) Abnormal digestive system diagnostic imaging: Code(s): R93.3 - Abnormal findings on diagnostic imaging of other parts of digestive tract Status: Acute (3) ROWDY (iron deficiency anemia): Qualifiers: Iron deficiency anemia type: other iron deficiency Qualified Code(s): D50.8 - Other iron deficiency anemias Code(s): D50.9 - Iron deficiency anemia, unspecified Status: Acute (4) Pulmonary nodules: Code(s): R91.8 - Other nonspecific abnormal finding of lung field Status: Acute (5) Coughing up blood: Code(s): R04.2 - Hemoptysis Status: Acute (6) Normocytic anemia: Code(s): D64.9 - Anemia, unspecified Status: Acute (7) Hypertension: Code(s): I10 - Essential (primary) hypertension Status: Acute (8) Chronic pain syndrome: Code(s): G89.4 - Chronic pain syndrome Status: Acute (9) Generalized anxiety disorder: Code(s): F41.1 - Generalized anxiety disorder Status: Acute (10) Schizophrenia: Code(s): F20.9 - Schizophrenia, unspecified Status: Acute (11) Anemia: Qualifiers: Anemia type: unspecified type Qualified Code(s): D64.9 - Anemia, unspecified Code(s): D64.9 - Anemia, unspecified Status: Acute (12) Esophagitis: Code(s): K20.90 - Esophagitis, unspecified without bleeding Status: Acute (13) Reflux esophagitis: Code(s): K21.00 - Gastro-esophageal reflux disease with esophagitis, without bleeding Status: Acute (14) Hiatal hernia: Code(s): K44.9 - Diaphragmatic hernia without obstruction or gangrene Status: Acute (15) Gastritis: Code(s): K29.70 - Gastritis, unspecified, without bleeding Status: Acute DS: Summary Hospital Course Reason for hospitalization: ?Coughing up blood.? Hospital Course: H&P: HPI History of Present Illness Date/Time: 07/28/23? 17:30 Chief Complaint: ?Coughing up blood.? Narrative: This is a pleasant 73-year-old male with history of hypertension, anxiety, neuro cognitive disorder, chronic pain, and schizophrenia who presented to the emergency department via EMS from [facility] for evaluation of ?coughing up blood.? The patient is not the greatest historian unfortunately he has never been seen at this facility before. He tells me that he has coughed up blood 4 to 5 times in the past 1 week. With further questioning he reports coughing up some mucus with a small amount of bright red blood in it. He does mention dental pain but does not think he has been bleeding from the mouth and he denies nose bleed as well. He does not believe that the blood is coming from the stomach. Otherwise he is feeling okay and he denies fever, chills, sweats, sinus congestion, sore throat, chest pain, pleuritic pain, shortness of breath, epigastric pain, abdominal pain, bloating, indigestion, diarrhea, melena, hematochezia, and dysuria
[2023-07-31 14:00] VITALS: BP 110/64; PULSE 99; RESP 18; TEMP 37; O2SAT 94
--- NOTE | 2023-07-31 14:27 | PC.NURSE ---
On 07/31/23, the ELECTRO PLATER, Sharri, provided care and completed [facility] on this patient. I have reviewed the ELECTRO PLATER's documentation and agree with the findings.
[2023-07-31 14:41] LABS: SARS-CoV-2 RNA PCR Negative (Negative)
--- NOTE | 2023-07-31 16:00 | WPDGIPROGNO ---
Progress Note: A&P Assessment and Plan (1) Reflux esophagitis: Code(s): K21.00 - Gastro-esophageal reflux disease with esophagitis, without bleeding Status: Acute Assessment and Plan: he will need PPI daily once he leaves the hospital no nsaid's will follow as needed (2) Hematemesis: Qualifiers: Nausea presence: without nausea Qualified Code(s): K92.0 - Hematemesis Code(s): K92.0 - Hematemesis Status: Acute Assessment and Plan: resolved (3) ROWDY (iron deficiency anemia): Qualifiers: Iron deficiency anemia type: other iron deficiency Qualified Code(s): D50.8 - Other iron deficiency anemias Code(s): D50.9 - Iron deficiency anemia, unspecified Status: Acute (4) Schizophrenia: Code(s): F20.9 - Schizophrenia, unspecified Status: Acute Subjective Date/time seen: 07/31/23 16:00 Interval history: egd yesterday showed ulcerative esophagitis/gastritis, no active bleeding no new events he is confused as baseline Review of Systems Review of Systems: All systems reviewed & are unremarkable except as noted in HPI and below Exam Const: General: comfortable Other: he is naked lying in bed HENMT: Face/Nose/Sinus: Normal nares present Eyes: Sclera: sclerae normal Neck: Neck: supple Resp: Effort & Inspection: normal respiratory effort Cardio: Rate: regular rate GI: GI Palp: Yes Soft to palpation and No Tenderness to palpation present (GI) Skin: General skin exam: normal color Neuro: Speech: normal speech Other: awake and alert but confused Extrem: General: normal to inspection Objective Data Vital Signs Vital Signs: Vital Signs - 24 hr 07/30/23 21:08 07/30/23 20:00 07/31/23 05:44 Temperature 98.7 F 97.9 F Pulse Rate 84 90 Respiratory Rate 20 20 Blood Pressure 120/75 124/65 Pulse Oximetry 97 95 Oxygen Delivery Room Air 07/31/23 09:00 07/31/23 14:00 Temperature 98.6 F Pulse Rate 99 Respiratory Rate 18 Blood Pressure 110/64 Pulse Oximetry 94 Oxygen Delivery Room Air Intake/Output Intake/Output: Intake & Output 07/28/23 07/29/23 07/30/23 07/31/23 23:59 23:59 23:59 23:59 Intake Total 415 1045 590 Output Total 1075 500 500 Balance -660 545 90 Meds/Results Medications: Active Medications Generic Name Dose Route Start Last Admin Trade Name Damion PRN Reason Stop Dose Admin Acetaminophen 650 mg 07/28/23 21:12 07/31/23 09:11 Acetaminophen 325 Mg Tablet PO 650 mg Q6H PRN Administration Mild Pain (1-3) or Fever Amlodipine Besylate 5 mg 07/31/23 18:00 Amlodipine Besylate 5 Mg Tablet PO QPM [facility] Escitalopram Oxalate 20 mg 07/29/23 09:00 07/31/23 09:07 Escitalopram Oxalate 10 Mg Tablet PO 20 mg DAILY YONATHAN Administration Gabapentin 300 mg 07/29/23 09:00 07/31/23 13:41 Gabapentin 300 Mg Capsule PO 300 mg TID YONATHAN Administration Lidocaine/Diphenhydr/Alum/Mg/Simeth 5 ml 07/29/23 01:00 07/31/23 13:42 Magnes & Alum Hyd/Simeth/Diphenhyd/Lidocaine 119 Ml Mouthwash BY MOUTH 08/28/23 00:59 5 ml Q4HR YONATHAN Administration Lisinopril 20 mg 07/31/23 09:00 07/31/23 09:07 Lisinopril 20 Mg Tablet PO 20 mg DAILY YONATHAN Administration Pantoprazole Sodium 40 mg 07/29/23 09:00 07/31/23 09:16 Pantoprazole Sodium Iv 40 Mg Vial IV PUSH 40 mg Q12HR YONATHAN Administration Quetiapine Fumarate 25 mg 07/28/23 21:40 07/31/23 09:07 Quetiapine Fumarate 25 Mg Tablet PO 25 mg Q12HR YONATHAN Administration Sucralfate 1,000 mg 07/30/23 11:42 07/31/23 11:38 Sucralfate Susp 100 Mg/Ml 10 Ml Udc PO 1,000 mg ACHS YONATHAN Administration Radiology Results: ITS Impressions Chest X-Ray 07/28/23 13:39 IMPRESSION: 1. Mild atelectasis in the lower lung zones. Chest CTA 07/28/23 15:45 IMPRESSION: 1. No large central pulmonary embolism. Evaluation of the peripheral pulmonary arteries limited. 2: Elevate
[2023-07-31] MEDS: amLODIPine BESYLATE 5 MG TABLET PO (17:01)
== END 2023-07-31 17:55 | DRG 812 ==
LOC: ANHED 17:48 → ANH3MEDSUR 18:04
PROVIDERS: Emergency Medicine; Internal Medicine Gastroenterology; Physician Assistant; Admitting Provider Internal Medicine; Emergency Provider Student in an Organized Health Care Education/Training Program; PCP Internal Medicine; Visit Provider Family Medicine
PROC: 0DJ08ZZ Inspection of Upper Intestinal Tract, Via Natural or Artificial Opening Endoscopic (ICD-10-PCS; CPT 43235; principal; 2023-07-30 16:00)
DX: D50.8 Other iron deficiency anemias (principal); K92.0 Hematemesis; F20.9 Schizophrenia, unspecified; F41.1 Generalized anxiety disorder; G89.29 Other chronic pain; I10 Essential (primary) hypertension; K44.9 Diaphragmatic hernia without obstruction or gangrene; K21.00 Gastro-esophageal reflux disease with esophagitis, without bleeding; R91.8 Other nonspecific abnormal finding of lung field; R41.9 Unspecified symptoms and signs involving cognitive functions and awareness; Z20.822 Contact with and (suspected) exposure to COVID-19; Z11.52 Encounter for screening for COVID-19
CPT/HCPCS: 36415; 71046; 71275; 80048; 80053; 82607; 82728; 82746; 83540; 83550; 83735; 83880; 84100; 84443; 84484; 85014; 85018; 85025; 85027; 85610; 85730; 86850; 86900; 86901; 87081; 87635; 87637; 88305; 88342; 93005; 96374; 99285; A9270; C9113; J1756; J2371; J2704; J7040; J7050; J7120; Q9967